=== PATIENT | male | born 1945 | race Caucasian/White ===

== ENCOUNTER 2016-05-14 07:17 | Outpatient (CLI) | payer MEDICARE, BC ==
[~2016-05-14] VITALS: Ht 180.3 cm; Wt 82.3 kg
--- NOTE | ~2016-05-14 | HEMODYNAMI ---
PATIENT:JACQUELINE STEELE MEDICAL RECORD: [id number] : 47 LOCATION:DODALYS ADMISSION DATE: 05/14/16 Generatedon:05/14/201610:51 Patient name: JACQUELINE STEELE Patient #: [id number] SSN: [id number] : 1945 Date of study: 05/14/2016 Page: Of Hemodynamic Procedure Report Patient Data Patient Demographics Procedure consent was obtained First Name: JACQUELINE Gender: Male Last Name: IVETTE : 1945 Middle Initial: DEBORA Age: 70 year(s) Patient #: [id number] Race: Unknown SSN: [id number] Additional ID: [id number] Contact details Address: [address] [place] [address] State: [place] City: [place] Zip code: [address] Past Medical History Allergies: No known allergies Admission Admission Data Admission Date: 05/14/2016 Admission Time: 7:17 Insurance Payor: Private health insurance, Medicare Height (in.): 71 BSA: 2.03 (m2) Height (cm.): 180.34 BMI: 25.52 (kg/m2) Weight (lbs.): 183 Weight (kg.): 83.01 Lab Results Lab Result Date: 05/14/2016 Lab Result Time: 0:00 Biochemistry Name Units Result Min Max BUN mg/dl 13 --(--*-)-- 7 18 Creatinine mg/dl 0.9 --(-*--)-- 0.6 1.3 CBC Name Units Result Min Max Hemoglobin g/dl 14.2 --(*---)-- 13.5 17.5 Procedure Procedure Types Cath Procedure Diagnostic Procedure [facility] w/Coronaries Procedure Description Procedure Date Procedure Date: 05/14/2016 Procedure Start Time: 10:28 Procedure End Time: 10:50 Procedure Staff Name Function Isma Pryor MD Performing Physician Annabella Lunsford RT Scrub Gladys Estrada RN Nurse Dallin Morales RN Supervisor Forming And Tempering Chani Israel RT Monitor Procedure Data Cath Procedure Fluoroscopy Diagnostic fluoroscopy Total fluoroscopy Time: 4.5 time: 4.5 min min Diagnostic fluoroscopy Total fluoroscopy dose: 721 dose: 721 mGy mGy Contrast Material Contrast Material Type Amount (ml) Isovue 300 86 Entry Location Entry Primary Successful Side Size Upsize Upsize Entry Closure Del Real ccessful Closure Location (Fr) 1 (Fr) 2 (Fr) Remarks Device Remarks Radial Right 6 Fr Mechanical tr b artery Short Compression Femoral Right 5 Fr Exoseal artery Estimated blood loss: 10 ml Diagnostic catheters Device Type Used For End Catheter Placement Terumo 5Fr Nicholas 110cm Procedure catheter Terumo 5Fr [place] 110cm Procedure catheter Cordis 5Fr JL 4.0 Procedure Catheter (MP) Cordis 5Fr 3DRC Catheter Procedure (MP) Cordis 5Fr Pigtail Catheter (MP) Procedure Complications No complications Procedure Medications Medication Administration Route Dosage Oxygen NC 2 l/min Heparin Flush Bag added to field 2 bags (1000units/500ml NS) Lidocaine 2% added to field 20 Radial Cocktail added to field 1 syringe (Verapomil 2mg/Nitro 400mcg/Heparin 1500units) Benadryl I.V. 50 mg Versed I.V. 1 mg Fentanyl I.V. 50 mcg Versed I.V. 1 mg Fentanyl I.V. 50 mcg Versed I.V. 1 mg Fentanyl I.V. 50 mcg Radial Cocktail I.A. 1 syringe (Verapomil 2mg/Nitro 400mcg/Heparin 1500units) Hemodynamics Rest BSA: 2.03 (m2) HGB: 14.2 (g/dl) O2 Consumption: Estimated: 237.38 (ml/min) O2 Co nsumption indexed: Estimated:116.94 (ml/min/m) Heart Rate: 73 (bpm) Pressure Samples Time Site Value (mmHg) Purpose Heart Use Rate(bpm) 10:42 LV 107/-14,9 Snapshot 71 Gradients Valve Time Site Site Mean SEP/DFP Peak To Heart Use 1 2 (mmHg) (sec/min) Peak Rate (mmHg) (bpm) Aortic 10:43 LV AO 73 Snapshots Pre Cath Intra NCS Post Cath Vital Signs Time Heart Resp SPO2 NIBP (mmHg) Rhythm Pain Sedation Rate (ipm) (%) Status Level (bpm) 9:46:21 66 15 98 141/77(117) NSR 0 (11) 10(A) , No pain 9:50:35 69 17 96 135/84(112) NSR 0 (11) 10(A) , No pain 9:54:47 66 18 96 141/80(124) NSR 0 (11) 10(A) , No pain 9:58:59 67 18 98 135/83(109) NSR 0 (11) 10(A) , No pain 10:03:09 66 16 95 125/83(102) NSR 0 (11) 10(A) , No pain 10:07:17 68 11 94 127/78(107) NSR 0 (11) 10(A) , No pain 10:11:27 67 11 96 133/79(112) NSR 0 (11) 10(A) , No pain 10:15:41 66 15 97 137/74(111) NSR 0 (11) 10(A) , No pain 10:19:54 76 13 96 125/84(103) NSR 0 (11) 10(A) , No pain 10:24:06 71 14 94 135/70(105) NSR 0 (11) 10(A) , No pain 10:28:20 80 16 95 138/74(106) NSR 0 (11) 10(A) , No pain 10:32:36 76 15 95 112/69(91) NSR 0 (11) 9(A) , No pain 10:36:44 69 17 95 116/67(88) NSR 0 (11) 9(A) , No pain 10:40:52 79 15 95 121/73(96) NSR 0 (11) 9(A) , No pain 10:45:02 83 15 95 119/68(99) NSR 0 (11) 9(A) , No pain 10:49:06 69 19 95 125/64(98) NSR 0 (11) 10(A) , No pain Medications Time Medication Route Dose Verified Delivered Reason Notes Effectiveness by by 9:49:22 Oxygen NC 2 l/min Isma Gladys Per Konstantin Estrada RN physician 9:49:30 Heparin Flush added 2 bags Isma Isma used for Bag to Konstantin Pryor MD procedure (1000units/500ml field NS) 9:49:37 Lidocaine 2% added 20ml Isma Isma used for to vial Konstantin Pryor MD procedure field 9:49:46 Radial Cocktail added 1 Isma Isma used for (Verapomil to syringe Konstantin Pryor MD procedure 2mg/Nitro field 400mcg/Heparin 1500units) 9:49:53 Benadryl I.V. 50 mg Isma Gladys Per Konstantin Estrada RN physician 10:21:50 Versed I.V. 1 mg Isma Gladys for sedation Konstantin Estrada RN 10:21:56 Fentanyl I.V. 50 mcg Isma Gladys for sedation Konstantin Estrada RN 10:25:04 Versed I.V. 1 mg Isma Gladys for sedation Konstantin Estrada RN 10:25:06 Fentanyl I.V. 50 mcg Isma Gladys for sedation Konstantin Estrada RN 10:28:34 Radial Cocktail I.A. 1 Isma Isma for (Verapomil syringe Konstantin Pryor MD vasodilation 2mg/Nitro 400mcg/Heparin 1500units) 10:29:18 Versed I.V. 1 mg Isma Gladys for sedation Konstantin Estrada RN 10:29:20 Fentanyl I.V. 50 mcg Isma Gladys for sedation Konsatntin Estrada RN Procedure Log Time Note 9:30:25 Dallin Morales RN sent for patient. Start room use. 9:35:13 Patient Height : 180.34 inches 9:35:24 Patient Weight : 83.01 lbs 9:35:31 Insurance Payor : Private health insurance, Medicare 9:36:37 Lab Result : BUN 13 mg/dl 9:36:37 Lab Result : Creatinine 0.9 mg/dl 9:36:37 Lab Result : Hemoglobin 14.2 g/dl 9:36:46 Diagnostic Cath Status : Elective 9:37:54 Time tracking: Regular hours 9:38:00 Plan of Care:Hemodynamics will remain stable., Cardiac rhythm will remain stable., Comfort level will be maintained., Respiratory function will remain adequate., Patient/ family verbilizes understanding of procedure., Procedure tolerated without complication., Recovers from procedure without complications.. 9:38:07 Patient received from Outpatients to [facility] 1 Alert and oriented. Tansferred to table in Supine position. 9:38:08 Warm blankets applied, and yanira hugger turned on for patient comfort. 9:38:11 Correct patient and procedure confirmed by team. 9:38:13 Signed procedure consent form obtained from patient. 9:45:17 Vital chart was started 9:49:22 Oxygen 2 l/min NC was given by Gladys Estrada RN; Per physician; 9:49:30 Heparin Flush Bag (1000units/500ml NS) 2 bags added to field was given by Isma Pryor MD; used for procedure; 9:49:37 Lidocaine 2% 20ml vial added to field was given by Isma Pryor MD; used for procedure; 9:49:46 Radial Cocktail (Verapomil 2mg/Nitro 400mcg/Heparin 1500units) 1 syringe added to field was given by Isma Pryor MD; used for procedure; 9:49:53 Benadryl 50 mg I.V. was given by Gladys Estrada RN; Per physician; 9:51:41 H&P Date Dictated: 05/09/2016 Within 30 days and on chart., H&P Addendum completed by physician on day of procedure. (MUST COMPLETE FOR ALL OUTPATIENTS). 9:51:43 Pre-procedure instructions explained to patient. 9:52:03 Family in waiting room. 9:52:06 Patient NPO since Midnight. 9:52:40 Patient allergic to No known allergies 9:52:52 Was the patient premedicated? No 9:52:54 Is patient on blood thinner?No 9:52:58 Patient diabetic? Yes. 9:53:00 If diabetic: On Metformin? Yes 9:53:07 If on Metformin: Last Dose? 05/12/2016 9:53:14 Snore? Yes 9:53:18 Sleep apnea? No 9:53:28 Dentures? Yes in tight 9:54:16 IV patent on arrival in left forearm with 0.9% NaCl at KVO. 9:54:23 Lab results completed and on chart. 9:54:27 Right Radial & Right Groin area was prepped with chlora-prep and draped in sterile fashion 9:54:28 Sharps counted by scrub and verified by R.N. 9:54:30 Physician paged 9:57:48 Use device set Radial Dx 9:57:50 Cardinal Cath Pack opened to sterile field. 9:57:51 Acist Syringe opened to sterile field. 9:57:51 Bag Decanter opened to sterile field. 9:57:52 Terumo 6Fr Slender Glidesheath opened to sterile field. 9:57:53 St Ceasar 260cm J .035 wire opened to sterile field. 9:57:53 Acist Hand Control opened to sterile field. 9:57:54 Acist Manifold opened to sterile field. 9:58:20 Cook 21G 4cm Radial Needle opened to sterile field. 10:21:11 Physician arrived 10::14 --------ALL STOP TIME OUT------ 10::15 Final Timeout: patient, procedure, and site verified with staff and physician. All members of the team are in agreement. 10:21:17 Right Radial & Right Groin site verified by team. 10:21:21 Physical assessment completed. ASA score P 2 - A patient with mild systemic disease as per Isma Pryor MD. 10::28 Sedation plan: IV Moderate Sedation Versed, Fentanyl 10::50 Versed 1 mg I.V. was given by Gladys Estrada RN; for sedation; 10::56 Fentanyl 50 mcg I.V. was given by Gladys Estrada RN; for sedation; 10::54 Baseline sample Acquired. 10::57 Rhythm: sinus rhythm 10::58 Full Disclosure recording started 10:25:04 Versed 1 mg I.V. was given by Gladys Estrada RN; for sedation; 10:25:06 Fentanyl 50 mcg I.V. was given by Gladys Estrada RN; for sedation; 10::57 Zero performed for pressure channel P1 10:28:09 Procedure started. 10:28:16 Local anesthetic to right radial artery with Lidocaine 2% by Isma Pryor MD.INITIAL ACCESS ONLY 10::25 A 6 Fr Short sheath was inserted into the Right Radial artery 10:28:34 Radial Cocktail (Verapomil 2mg/Nitro 400mcg/Heparin 1500units) 1 syringe I.A. was given by Isma Pryor MD; for vasodilation; 10:29:18 Versed 1 mg I.V. was given by Gladys Reading RN; for sedation; 10:29:20 Fentanyl 50 mcg I.V. was given by Gladys Estrada RN; for sedation; 10:31:36 A Terumo 5Fr Nicholas 110cm catheter was advanced over the wire and used for Procedure. 10:32:41 Catheter removed. 10:34:29 A Terumo 5Fr [place] 110cm catheter was advanced over the wire and used for Procedure. 10:34:42 unable to cannulate 10:35:35 Terumo 5Fr Rinard Sheath opened to sterile field. 10:35:45 Local anesthetic to right femoral artery with Lidocaine 2% by Isma Pryor MD.ADDITIONAL ACCESS 10:35:55 A 5 Fr sheath was inserted into the Right Femoral artery 10:36:15 Use device set Multipack Set 10:36:19 Cordis Infinity 5Fr Multipack catheter opened to sterile field. 10:37:47 A Cordis 5Fr JL 4.0 Catheter (MP) was advanced over the wire and used for Procedure. 10:37:56 LCA angiography performed. 10:38:39 Catheter removed. 10:38:48 A Cordis 5Fr 3DRC Catheter (MP) was advanced over the wire and used for Procedure. 10:38:53 RCA angiography performed. 10:42:07 Catheter removed. 10:42:53 A Cordis 5Fr Pigtail Catheter (MP) was advanced over the wire and used for . 10:43:14 LV gram done using MARKS 10:43:18 Catheter removed. 10:43:24 EF : 25 % 10:45:27 Cordis 5Fr Exoseal opened to sterile field. 10:46:03 Terumo TR Band Standard opened to sterile field. 10:46:06 Tegaderm 4 x 4 opened to sterile field. 10:47:01 Sheath removed intact; hemostasis achieved with Mechanical Compression to the Right Radial artery. 10:47:51 Sheath removed intact; hemostasis achieved with Exoseal to the Right Femoral artery. 10:47:57 Procedure ended.(Physican Out) 10:48:30 Fluoroscopy time 04.50 minutes. 10:48:44 Flurop Dose total: 721 10:48:44 Fluoroscopy dose: 721 mGy 10:48:51 Contrast amount:Isovue 300 86ml. 10:48:53 Sharps counted by scrub and verified by R.N. 10:49:01 TR band inflated with 10cc of air. 10:49:04 Insertion/operative site no bleeding no hematoma. 10:49:08 Post-op/insertion site Right Femoral artery dressed using a 4 x 4 and Tegaderm. 10:49:13 Post Procedure Pulses reassessed and unchanged 10:49:18 Post-procedure physical assessment completed. ASA score P 2 - A patient with mild systemic disease as per Isma Pryor MD. 10:49:23 Post procedure rhythm: sinus rhythm 10:49:27 Estimated blood loss: 10 ml 10:49:29 Post procedure instruction explained to patient.Patient verbalizes understanding. 10:49:31 Patient needs reinforcement of post procedure teaching. 10:49:39 Procedure and supply charges have been captured, reviewed, submitted and are correct. 10:50:11 Procedure Complication : No complications 10:50:14 Vital chart was stopped 10:50:14 See physician's report for complete and final results. 10:50:21 Report given to Outpatients. 10:50:25 Patient transfered to Outpatients with Stretcher. 10:50:28 Procedure ended. 10:50:28 Full Disclosure recording stopped 10:50:42 End room use (Document Last) Device Usage Item Name Manufacture Quantity Catalog Hospital Part Current Minimal Lot# / Number Charge Number Stock Stock Serial# Code Cardinal Cardinal 1 [id number] 09829 465800 5 Cath CertusNet Acist Acist 1 64268 520646 787778 713380 20 Syringe [employer] Inc Bag Microtek 1 2002S 434414 63929 046541 5 Decanter [employer]. Terumo 6Fr Terumo 1 [id number] 620949 763228 639690 [address] Ce[address] St Ceasar 1 382126 599614 483961 310755 30 260cm J .035 wire Acist Hand Acist 1 74661 708445 683657 163292 5 Control Medical [employer] Inc Acist Acist 1 10670 360206 038207 136504 5 Manifold [employer] Inc Cook 21G Cook Medical 1 Q38008 909696 226619 5 4cm Radial Needle Terumo 5Fr Terumo 1 40-9198 831925 907664 510077 5 Nicholas 110cm catheter Terumo 5Fr Terumo 1 40-8513 549711 685012 432200 5 [place] 110cm catheter Terumo 5Fr Terumo 1 [id number] 379787 726347 440201 40 Rinard Sheath Cordis Cardinal 1 [id number] 907306 97889 275328 30 Infinity Health 5Fr Multipack catheter Cordis 5Fr Cardinal 1 998774 5 JL 4.0 Health Catheter (MP) Cordis 5Fr Cardinal 1 906605 5 3DRC Health Catheter (MP) Cordis 5Fr Cardinal 1 935150 5 Pigtail Health Catheter (MP) Cordis 5Fr Cardinal 1 EX500 920891 113352 759832 10 Exoseal Health Terumo TR Terumo 1 [id number] 491943 919691 881570 40 Band Standard Tegaderm 4 3M 1 1626W 197550 810479 482320 5 x 4 Signature Audit [place] Stage Time Signature Unsigned Intra-Procedure 05/14/2016 Chani Israel 10:51:16 AM RT(R) Signatures Monitor : Chani Israel Signature : RT Date : Time : [place] [id number] [place] [id number]
[2016-05-14] MEDS ORDERED: GLIPIZIDE10 MG PO (07:59)
[2016-05-14] MEDS ORDERED: BAYER CHEWABLE81 MG PO (07:59)
[2016-05-14] MEDS ORDERED: ZESTRIL10 MG PO (08:00)
[2016-05-14] MEDS ORDERED: LANTUS INSULIN10 ML SC (08:00)
[2016-05-14] MEDS ORDERED: GLUCOPHAGE1000 MG PO (08:01)
[2016-05-14] MEDS ORDERED: ZOCOR20 MG PO (08:05)
[2016-05-14 08:16] VITALS: BP 132/70; Ht 180.3 cm; Wt 82.3 kg
[2016-05-14 09:00] LABS: HEMATOCRIT 43.8 % (42.0-54.0); HEMOGLOBIN 14.2 g/dL (13.5-17.5); IMMATURE GRANULOCYTES 0.4 % (0-5); LYMPHOCYTES 20.8 % (15-50); MCH 25.7 pg (26.0-34.0); MCHC 32.4 g/dL (31.0-37.0); MCV 79.2 fL (80.0-100.0); MEAN PLATELET VOLUME 10.1 fL (7.4-10.4); MONOCYTES 11.8 % (2-11); PLATELET COUNT 385 10x3/uL (130-400); RBC 5.53 10x6/uL (4.20-6.10); RDW 14.6 % (11.5-14.5); WBC 8.9 10x3/uL (4.8-10.8)
[2016-05-14 09:09] LABS: CALC OSMOLALITY 285 mosm/kg (275-300); CARBON DIOXIDE 30.4 mmol/L (21.0-32.0); CHLORIDE - SERUM 104 mmol/L (98-107); CREATININE - SERUM 0.9 mg/dL (0.6-1.3); GLUCOSE 118 mg/dL (74-106); POTASSIUM - SERUM 4.9 mmol/L (3.5-5.1); SODIUM 143 mmol/L (136-145); UREA NITROGEN 13 mg/dL (7-18); eGFR NON AFRICAN AMERICAN 89 mL/min (90-120)
--- NOTE | 2016-05-14 11:20 | NUR ---
CHEST PAIN DENIED WITH HR NSR 60 BP 102/57 TR BAND TO R/WRIST CDI NO BLEEDING NO HEMATOMA NOTED. 5 FR VASCADE R/GROIN CDI NO BLEEDING NO HEMATOMA NOTED INSTRUCTED PATIENT TO KEEP RLE STRAIGHT WITH HEAD FLAT ON PILLOW
--- NOTE | 2016-05-14 13:02 | NUR ---
1150 SLEEPING, LYING FLAT. NSR R ATE 65 W NO C/O PAIN. PULSES PALP X4. R WRIST AND R GROIN REMAIN C/D/I WITH NO HEMATOMA OR BLEEDING. 1230 R WRIST/R GROIN REMAIN C/D/I WITH NO HEMATOMA OR BLEEDING. VITALS ALL WNL. FAMILY AT BEDSIDE.
--- NOTE | 2016-05-14 13:19 | NUR ---
4CC AIR REMOVED FROM R WRIST TR BAND, IMMEDIATELY STARTED TO BLEED. AIR REPLACED WILL MONITOR CLOSELY.
--- NOTE | 2016-05-14 14:00 | NUR ---
TR BAND REMOVED WITH NO BLEEDING AT SITE NO HEMATOMA NOTED. DRESSING APPLIED. CHEST PAIN IS DENIED. VERBAL AND WRITTEN DISCHARGE GIVEN TO PATIENT AND . LEFT VIA WC TO [facility] FOR TRANSPORT HOME
--- NOTE | 2016-05-27 13:15 | OP ---
PATIENT NAME: JACQUELINE STEELE MEDICAL RECORD: [id number] :47 LOCATION:D.CAT ADMISSION DATE: SURGEON: IVAN WARNER M.D. DATE OF OPERATION: 05/14/2016 REFERRING PHYSICIAN: Joyce Burris MD PROCEDURES PERFORMED: 1. Selective coronary angiography. 2. Left heart catheterization with ventriculogram. INDICATION: A 70-year-old gentleman presents with worsening dyspnea. Recent stress test revealed inferior wall defect. EQUIPMENT USED: A 5-Kinyarwanda JL4, Dereck right, pigtail catheter. TECHNIQUE: A 5-Kinyarwanda sheath was placed in retrograde fashion in the right common femoral artery. Next, selective coronary angiography was performed in standard fashion 5-Kinyarwanda JL4 and Dereck right. Left heart catheterization was performed using pigtail catheter. CORONARY ANATOMY: 1. Left main: Left main trunk is moderate in caliber. It gives rise to the LAD and circumflex. There is no obstruction. 2. LAD: This vessel is heavily calcified in the proximal segment, but only has mild irregularities and nothing worse than 20% to 30%. Mid distal vessel is small in caliber. It is diffusely diseased. There is moderate disease seen in these areas around 40% to 50%. 3. Circumflex: This vessel is moderate in caliber. The first lateral branch has a smooth 50% stenosis in the mid distal segment. 4. Right coronary artery: This vessel is moderate in caliber and dominant. The proximal vessel has mild irregularities, but nothing worse than 30%. 5. Left ventricle: Left ventricle is dilated. The apex is severely hypokinetic. There is global hypokinesis involving the other segments. Estimated ejection fraction of 25%. IMPRESSION: 1. Moderate coronary artery disease. 2. Severe left ventricular dysfunction with ejection fraction of 25%. RECOMMENDATIONS: I suspect his symptoms are mainly from his reduced ejection fraction. We will continue with the medical management at this point. We may consider an ICD versus biventricular pacemaker because of his reduce ejection fraction. TRANSINT:[id number] Voice Confirmation ID: [id number] DOCUMENT ID: [id number] OPERATIVE REPORT [id number] JACQUELINE STEELE IVAN WARNER M.D. at 1315 CC: [id number] DICTATION DATE: 05/14/16 1052 SR. PAYROLL PROCESSOR: 05/14/16 1208 DEP CLI 05/14/16 [place] [id number] [place] [address]
== END 2016-05-14 14:03 | disposition home or self-care (01) ==
LOC: D.CATH 07:17
PROVIDERS: Internal Medicine Cardiovascular Disease
DX: I25.10 Atherosclerotic heart disease of native coronary artery without angina pectoris (principal); I51.9 Heart disease, unspecified

== ENCOUNTER 2018-04-05 08:15 | Day surgery (SDC) | payer MEDICARE, BC ==
[2018-04-04 15:17] LABS: HEMATOCRIT 37.1 % (42.0-54.0); MCH 24.9 pg (26.0-34.0); MCHC 32.3 g/dL (31.0-37.0); MCV 77.1 fL (80.0-100.0); MEAN PLATELET VOLUME 9.3 fL (7.4-10.4); RBC 4.81 10x6/uL (4.20-6.10); RDW 15.1 % (11.5-14.5); WBC 9.1 10x3/uL (4.8-10.8)
[2018-04-04 15:23] LABS: CALC OSMOLALITY 281 mosm/kg (275-300); CALCIUM 9.3 mg/dL (8.5-10.1); CARBON DIOXIDE 26.7 mmol/L (21.0-32.0); CHLORIDE - SERUM 102 mmol/L (98-107); CREATININE - SERUM 0.9 mg/dL (0.6-1.3); POTASSIUM - SERUM 4.2 mmol/L (3.5-5.1); SODIUM 138 mmol/L (136-145); UREA NITROGEN 17 mg/dL (7-18); eGFR NON AFRICAN AMERICAN 88 mL/min (90-120)
[2018-04-04 15:28] LABS: GLUCOSE 172 mg/dL (74-106)
[~2018-04-05] VITALS: Ht 181.6 cm; Wt 78.9 kg
--- NOTE | ~2018-04-05 | OP ---
PATIENT NAME: JACQUELINE STEELE MEDICAL RECORD: [id number] :47 LOCATION:D.OPS ADMISSION DATE: SURGEON: SAAD HENRY MD DATE OF OPERATION: 04/05/2018 SURGEON: Sada Henry MD ANESTHESIA: TIVA by Laquita Marrero CRNA. DIAGNOSIS: Obstructive benign prostatic hypertrophy. PROCEDURES: Cystoscopy and UroLift implant times 4, FINDINGS: Bilateral lateral lobe hyperplasia. Single ureteral orifices with no bladder tumors. A 40 gram prostate on JEB. IPSS is 15 and quality of life score is 3. BLOOD LOSS: Minimal. CLINICAL HISTORY: This is a 72-year-old male, who has significant voiding symptoms in spite of being on BPH medications. He wishes to be placed on the UroLift procedure. He was given Ancef contracts manager to the OR. DESCRIPTION OF PROCEDURE: The patient was given IV sedation. He was placed in dorsal lithotomy position. The scope was introduced and the obstructive lateral lobes were seen. Four devices were placed. Two were near the bladder neck and two were at the level of the verumontanum. There was one device on each side at each location. For the bladder neck devices, we landmarked about 2 cm distal to the bladder neck and then placed the device in the anterior lateral lobe. For the verumontanum devices, we landmarked the verumontanum and went up to the anterior lateral lobe and placed the devices. At the end of the procedure, there was a nice wide open channel. The bladder was emptied through the scope and the scope was removed. I will see him in followup in 1 months' time. TRANSINT:[id number] Voice Confirmation ID: [id number] DOCUMENT ID: [id number] SAAD HENRY MD at 1152 CC: [id number] DICTATION DATE: 04/05/18 1024 ELECTRIC TRAIN DRIVER: 04/05/18 1145 [address] [place] [id number] [place] [address]
[~2018-04-05 08:15] MED LIST: BAYER CHEWABLE81 MG PO; CELEXA20 MG PO; COREG12.5 MG PO; GLIPIZIDE10 MG PO; GLUCOPHAGE1000 MG PO; LANTUS INJ; LANTUS INSULIN10 ML SC; ZESTRIL10 MG PO; ZOCOR20 MG PO
[2018-04-05] MEDS ORDERED: CARBIDOPA-LEVO1 EAC2 PO (08:41)
[2018-04-05 08:49] VITALS: BP 135/75; Ht 181.6 cm; Wt 78.9 kg
== END 2018-04-05 15:30 | disposition home or self-care (01) ==
LOC: D.OPS 08:15 → D.PAN 11:30 → D.OPS 14:10 → D.PAN 14:10 → D.OPS 15:15 → D.PAN 15:15 → D.OPS 15:30
PROVIDERS: Anesthesiology
DX: N40.1 Benign prostatic hyperplasia with lower urinary tract symptoms (principal); N13.8 Other obstructive and reflux uropathy; Z01.812 Encounter for preprocedural laboratory examination

== ENCOUNTER → 2018-06-03 12:44 | Outpatient (CLI) | payer MEDICARE, BC ==
[2018-04-05 08:49] VITALS: BMI 23.9
[~2018-06-03 12:44] MED LIST changes: +CARBIDOPA-LEVO1 EAC2 PO
== END | disposition home or self-care (01) ==
LOC: D.RT 12:44
DX: R06.09 Other forms of dyspnea (principal)

== ENCOUNTER → 2018-11-17 10:35 | Outpatient (CLI) | payer MEDICARE, BC ==
[2018-04-05 08:49] VITALS: BMI 23.9
[~2018-11-17 10:35] MED LIST changes: +LOPRESSOR25 MG PO; +OMEPRAZOLE40 MG PO; +PLAVIX75 MG PO; +XANAX0.25 MG PO
== END | disposition home or self-care (01) ==
LOC: D.HCCARDIO 10:35
PROVIDERS: ATTEND Internal Medicine Cardiovascular Disease
DX: I25.10 Atherosclerotic heart disease of native coronary artery without angina pectoris (principal)

== ENCOUNTER 2018-11-24 06:28 | Outpatient (CLI) | payer MEDICARE, BC ==
[~2018-11-24] VITALS: Ht 182.9 cm; Wt 77.3 kg
--- NOTE | ~2018-11-24 | HEMODYNAMI ---
PATIENT:JACQUELINE STEELE MEDICAL RECORD: [id number] : 47 LOCATION:[facility] ADMISSION DATE: 11/24/18 Generatedon:11/24/20189:54 Patient name: JACQUELINE STEELE Patient #: [id number] SSN: [id number] : 1945 Date of study: 11/24/2018 Page: Of Hemodynamic Procedure Report Patient Data Patient Demographics Procedure consent was obtained First Name: JACQUELINE Gender: Male Last Name: IVETTE : 1945 Middle Initial: DEBORA Age: 73 year(s) Patient #: [id number] Race: SSN: [id number] Additional ID: [id number] Contact details Address: [address] [place] [address] State: [place] City: [place] Zip code: [address] Past Medical History Performed procedures and imaging results Date Procedure Procedure Results Comments 11/17/2018 Stress testing with Positive->High SPECT MPI risk Allergies: No known allergies Admission Admission Data Admission Date: 11/24/2018 Admission Time: 6:28 Arrival Date: 11/24/2018 Arrival Time: 0:00 Admit Source: Other [facility] #: [id number] Lab Results Lab Result Date: 11/24/2018 Lab Result Time: 7:45 Biochemistry Name Units Result Min Max BUN mg/dl 15 --(--*-)-- 7 18 Creatinine mg/dl 1 --(--*-)-- 0.6 1.3 CBC Name Units Result Min Max Hematocrit % 33.3 *-(----)-- 42 54 Hemoglobin g/dl 10.3 *-(----)-- 13.5 17.5 Procedure Procedure Types Cath Procedure Diagnostic Procedure [facility] w/Coronaries Sedation Charges Moderate Sedation up to 30 minutes PCI Procedure Coronary Stent Coronary Stent Initial Procedure Description Procedure Date Procedure Date: 11/24/2018 Procedure Start Time: 9:22 Procedure End Time: 9:53 Procedure Staff Name Function Isma Pryor MD Performing Physician Yasir Silver RT Monitor Angel Tran RT Scrub Tatianna Harvey RT Scrub Marquis Calhoun RN Nurse Procedure Data Cath Procedure Fluoroscopy Diagnostic fluoroscopy Total fluoroscopy Time: 4.6 time: 4.6 min min Diagnostic fluoroscopy Total fluoroscopy dose: 891 dose: 891 mGy mGy Contrast Material Contrast Material Type Amount (ml) Isovue 300 140 Entry Location Entry Primary Successful Side Size Upsize Upsize Entry Closure Succes sful Closure Location (Fr) 1 (Fr) 2 (Fr) Remarks Device Remarks Femoral Right 5 Fr 7 Fr Exoseal artery Short Estimated blood loss: 10 ml Diagnostic catheters Device Type Used For End Catheter Placement MULTIPACK JL 4.0 5Fr Procedure catheter MULTIPACK 3DRC 5Fr Procedure catheter MULTIPACK Pigtail 5 Fr Procedure catheter Procedure Complications No complications Procedure Medications Medication Administration Route Dosage Oxygen etCO2 Nasal cannula 2 l/min Lidocaine 2% added to field 20 Heparin Flush Bag added to field 2 bags (1000units/500ml NS) 0.9% NaCl I.V. 100 ml/hr Versed I.V. 1 mg Fentanyl I.V. 50 mcg Versed I.V. 1 mg Fentanyl I.V. 50 mcg Heparin Bolus I.V. 8000 units Nitroglycerin IC/IA I.C. 100 mcg Plavix P.O. 600 mg Hemodynamics Rest HGB: 10.3 (g/dl) Heart Rate: 70 (bpm) Pressure Samples Time Site Value (mmHg) Purpose Heart Use Rate(bpm) 9:30 LV 142/14,24 Snapshot 66 9:31 AO 141/70(99) Pullback 65 9:31 LV 145/12,35 Pullback 65 Gradients Valve Time Site 1 Site 2 Mean SEP/DFP Peak To Heart Use (mmHg) (sec/min) Peak Rate (mmHg) (bpm) Aortic 9:31 LV AO 10 15 4 65 145/12,35 141/70(99) Calculations Valve P-P Mean Valve Index Valve Source Name Gradient Area Flow (cm2) Aortic 4 10 4 10 Snapshots Pre Cath Intra NCS Post Cath Vital Signs Time Heart Resp SPO2 etCO2 NIBP (mmHg) Rhythm Pain Sedation Rate (ipm) (%) (mmHg) Status Level (bpm) 9:10:16 68 18 98 28.4 153/92(131) NSR 0 (11) 10(A) , No pain 9:14:37 60 17 99 21.6 154/74(133) NSR 0 (11) 10(A) , No pain 9:18:57 56 16 99 28.4 140/77(112) NSR 0 (11) 9(A) , No pain 9:24:04 55 15 98 14.2 133/75(111) NSR 0 (11) 9(A) , No pain 9:28:14 64 13 96 35.9 145/80(117) NSR 0 (11) 9(A) , No pain 9:32:28 66 14 97 21.6 135/86(102) NSR 0 (11) 9(A) , No pain 9:36:38 65 13 99 35.9 126/83(103) NSR 0 (11) 9(A) , No pain 9:40:45 64 11 98 35.9 133/78(99) NSR 0 (11) 9(A) , No pain 9:44:57 64 13 98 35.1 138/72(103) NSR 0 (11) 9(A) , No pain 9:49:09 64 12 98 35.9 132/83(101) NSR 0 (11) 9(A) , No pain 9:53:19 62 12 98 30.6 139/81(109) NSR 0 (11) 10(A) , No pain Medications Time Medication Route Dose Verified Delivered Reason Notes Effectiveness by by 9:07:59 Oxygen etCO2 2 Isma Buffie used for Nasal l/min Konstantin Calhoun RN procedure cannula 9:08:07 Lidocaine 2% added 20ml Isma Isma for local to vial Konstantin Pryor MD anesthetic field 9:08:13 Heparin Flush added 2 Isma Isma used for Bag to bags Konstantin Pryor MD procedure (1000units/500ml field NS) 9:08:21 0.9% NaCl I.V. 100 Isma Buffie Per physician ml/hr Konstantin Calhoun RN 9:14:57 Versed I.V. 1 mg Isma Buffie for sedation Konstantin Calhoun RN 9:15:02 Fentanyl I.V. 50 Isma Buffie for sedation mcg Konstantin Calhoun RN 9:21:26 Versed I.V. 1 mg Isma Buffie for sedation Konstantin Calhoun RN 9:21:30 Fentanyl I.V. 50 Isma Buffie for sedation mcg Konstantin Calhoun RN 9:35:25 Heparin Bolus I.V. 8000 Isma Buffie for verifi ed units Konstantin Calhoun RN anticoagulation with dr pryor 9:35:38 Nitroglycerin I.C. 100 Isma Isma for IC/IA mcg Konstantin Pryor MD vasodilation 9:53:41 Plavix P.O. 600 Isma Buffie for mg Konstantin Calhoun RN antiplatelet therapy Procedure Log Time Note 8:44:42 Informed consent obtained and on chart 8:47:21 Admit Source: Other 8:47:24 Arrival Date: 11/24/2018 12:00:00 AM 8:49:14 Lab Result : Hemoglobin 10.3 g/dl 8:49:14 Lab Result : Hematocrit 33.3 % 8:49:14 Lab Result : BUN 15 mg/dl 8:49:14 Lab Result : Creatinine 1 mg/dl 8:49:28 Diagnostic Cath Status : Elective 8:49:48 ACC Patient presents with Stable Angina CCS Anginal Class 1--Ordinary physical activity does not cause angina, angina occurs with strenuos, rapid, or prolonged activity.. 8:49:51 ACCPatient has been prescribed/administered the following anti-anginal medication within the last 2 weeks: Beta Farhan 8:49:54 Procedure Status Elective Heart Cath (OP). 8:49:57 Angel Tran RT(R) sent for patient. Start room use. 8:49:58 Time tracking: Regular hours (M-F 7:00 - 5:00) 8:50:01 Plan of Care:Hemodynamics will remain stable., Cardiac rhythm will remain stable., Comfort level will be maintained., Respiratory function will remain adequate., Patient/ family verbilizes understanding of procedure., Procedure tolerated without complication., Recovers from procedure without complications.. 8:50:08 H&P Date Dictated: 11/14/2018 Within 30 days and on chart., H&P Addendum completed by physician on day of procedure. (MUST COMPLETE FOR ALL OUTPATIENTS). 8:50:12 Lab results completed and on chart. 8:59:48 Patient allergic to No known allergies 9:01:44 Patient received from Pre/Post Procedure Room to CCL 1 Alert and oriented. Tansferred to table in Supine position. 9:01:47 Warm blankets applied, and yanira hugger turned on for patient comfort. 9:01:48 Correct patient and procedure confirmed by team. 9:01:48 ECG and BP/O2 sat monitors applied to patient. 9:03:10 If diabetic: On Metformin? Yes 9:03:16 If on Metformin: Last Dose? 11/22/2018 9:03:21 Pre-procedure instructions explained to patient. 9:03:22 Pre-op teaching completed and patient verbalized understanding. 9:03:23 Family in waiting room. 9:03:25 Patient NPO since Midnight. 9:03:26 Is the patient allergic to Iodine/contrast media? No. 9:03:27 Is patient on blood thinner?No 9:03:30 ACC The patient was administered the following blood thiners within the last 24 hours: None 9:03:34 Previous problem with sedation/anesthesia? No ? 9:03:36 Snore? No 9:03:37 Sleep apnea? No 9:03:37 Deviated septum? No 9:03:41 Opens mouth fully? Yes 9:03:48 Sticks out tongue? Yes 9:04:11 Airway obstruction? No ? 9:04:36 Dentures? Yes TOP IN TIGHT, BOTTOM OUT 9:04:46 Pre procedure: right dorsailis pedis pulse 2+ Normal; easily identifiable; not easily obliterated 9:04:52 Patient pain scale 4/10 LEFT ARM PAIN. 9:05:01 IV patent on arrival in left forearm with 0.9% NaCl at O. 9:05:07 Right groin area was prepped with chlora-prep and draped in sterile fashion 9:05:08 Alarms reviewed by R. N. 9:05:09 Sharps counted by scrub and verified by R.N. 9:05:11 Use device set Femoral Dx 9:05:12 ACIST Syringe (03897) opened to sterile field. 9:05:12 Bag Decanter (2002S) opened to sterile field. 9:05:12 Medline Cath Pack ([id number]) opened to sterile field. 9:05:13 ACIST Hand Control (83194) opened to sterile field. 9:05:14 ACIST Manifold (87424) opened to sterile field. 9:05:14 Tegaderm 4 x 4 (1626W) opened to sterile field. 9:05:15 EMERALD Guide Wire (685-041) opened to sterile field. 9:05:16 DIAGNOSTIC Multipack 5Fr catheter set (OB9767) opened to sterile field. 9:05:18 SHEATH 5FR Stonewall (BYV502) opened to sterile field. 9:07:59 Oxygen 2 l/min etCO2 Nasal cannula was administered by Marquis Calhoun RN; used for procedure; 9:08:07 Lidocaine 2% 20ml vial added to field was administered by Isma Pryor MD; for local anesthetic; 9:08:13 Heparin Flush Bag (1000units/500ml NS) 2 bags added to field was administered by Isma Pryor MD; used for procedure; 9:08:21 0.9% NaCl 100 ml/hr I.V. was administered by Marquis Calhoun RN; Per physician; 9::54 Baseline sample Acquired. 9:11:43 Baseline sample Acquired. 9:11:50 Rhythm: 1st degree heart block 9:11:52 Full Disclosure recording started 9:11:54 Physician arrived 9:11:55 --------ALL STOP TIME OUT------ 9:11:55 Final Timeout: patient, procedure, and site verified with staff and physician. All members of the team are in agreement. 9:11:58 Right groin site verified by team. 9:12:01 Fire Safety Assessment: A--An alcohol-based skin anteseptic being used preoperatively., C--Open oxygen or nitrous oxide is being used., D--An ESU, laser, or fiber-optic light is being used. 9:12:04 Physical assessment completed. ASA score P 2 - A patient with mild systemic disease as per Isma Pryor MD. 9:12:07 2) 60-89 Mildly reduced kidney function, and other findings (as for stage 1) point to kidney disease. 9:12:14 Maximum allowable contrast dose (3.7 X eGFR X 0.75)216 ml. 9:12:19 Sedation plan: IV Moderate Sedation Medication:Versed, Fentanyl 9:14:57 Versed 1 mg I.V. was administered by Marquis Calhoun RN; for sedation; 9:15:02 Fentanyl 50 mcg I.V. was administered by Marquis Calhoun RN; for sedation; 9:21:24 Zero performed for pressure channel P1 9:21:26 Versed 1 mg I.V. was administered by Marquis Calhoun RN; for sedation; 9:21:30 Fentanyl 50 mcg I.V. was administered by Marquis Calhoun RN; for sedation; 9:21:54 Procedure started. 9:22:00 Local anesthetic to right femoral artery with Lidocaine 2% by Isma Pryor MD.INITIAL ACCESS ONLY 9:22:08 A 5 Fr sheath was inserted into the Right Femoral artery 9:23:32 A MULTIPACK JL 4.0 5Fr catheter was advanced over the wire and used for Procedure. 9:27:21 LCA angiography performed. 9:27:25 Catheter exchanged over wire. 9:27:30 A MULTIPACK 3DRC 5Fr catheter was advanced over the wire and used for Procedure. 9:27:50 RCA angiography performed. 9:28:11 ACCDominant side:Co-Dominant 9:28:40 Catheter exchanged over wire. 9:28:45 A MULTIPACK Pigtail 5 Fr catheter was advanced over the wire and used for Procedure. 9:29:19 BMW 300cm [place] 2 J wire ([id number]) opened to sterile field. 9:29:20 INFLATOR Merit BasixCompak (YF7636) opened to sterile field. 9:29:30 SHEATH 7FR Stonewall (DAP621) opened to sterile field. 9:29:41 TUBING High Pressure Extension Tubing (Konstantin) ([id number]) opened to sterile field. 9:30:22 LV gram done using MARKS 9:30:24 Injector settings: Ml/sec: 10, Volume: 20, 9:30:34 LV hemodynamics recorded. 9:30:49 EF : 15 % 9:31:03 Catheter removed. 9:31:11 Sheath upsized to a 7 Fr Short. 9:32:27 GUIDE 6FR AR 1.0 catheter (BU4QK76) opened to sterile field. 9:32:36 6 Fr AR 1 guide catheter was inserted over the wire 9:32:40 ACC Pre-intervention EBER Flow is 3. 9:32:48 Pre PCI Site: NativeRCA has 90% stenosis. 9:35:25 Heparin Bolus 8000 units I.V. was administered by Marquis Calhoun RN; for anticoagulation; verified with dr pryor 9:35:38 Nitroglycerin IC/IA 100 mcg I.C. was administered by Isma Pryor MD; for vasodilation; 9:38:51 BMW wire advanced. 9:38:53 Wire advanced across lesion. 9:42:31 Place stent Inflation Number: 1 A COBRA RX 2.5 X 18 Stent was prepped and advanced across the Mid RCA -1. The stent was deployed at 12 OBI for 0:10 (min:sec) -1. 9:43:27 Stent catheter was removed intact over wire. 9:46:33 Place stent Inflation Number: 2 A COBRA RX 3.0 X 24 Stent was prepped and advanced across the Mid RCA . The stent was deployed at 12 OBI for 0:10 (min:sec) . 9:46:45 Stent catheter was removed intact over wire. 9:48:22 Wire removed. 9:48:22 Guide catheter removed. 9:48:43 ACT drawn and resulted at 265 seconds. (normal therapeutic range 180-240 seconds). 9:49:09 EXOSEAL 7Fr (EX700) opened to sterile field. 9:49:19 Sheath removed intact; hemostasis achieved with Exoseal to the Right Femoral artery. 9:49:21 Procedure ended.(Physican Out) 9:50:43 Fluoroscopy time 04.60 minutes. 9:51:22 Fluoroscopy dose: 891 mGy 9:51:22 Flurop Dose total: 891 9:51:43 Dose Area Product 64904.18175 mGy/cm. 9:51:47 Contrast amount:Isovue 300 140ml. 9:51:49 Maximum allowable dose exceeded? No. 9:51:50 Sharps counted by scrub and verified by R.N. 9:51:50 Insertion/operative site no bleeding no hematoma. 9:51:53 Post-op/insertion site Right Femoral artery dressed using a 4 x 4 and Tegaderm. 9:51:56 Post right femoral artery:stable, soft, clean and dry 9:51:58 Post Procedure Pulses reassessed and unchanged 9:52:00 Post-procedure physical assessment completed. ASA score P 2 - A patient with mild systemic disease as per Isma Pryor MD. 9:52:02 Post procedure rhythm: unchanged. 9:52:07 Estimated blood loss: 10 ml 9:52:08 Post procedure instruction explained to patient.Patient verbalizes understanding. 9:52:09 Patient needs reinforcement of post procedure teaching. 9:52:35 Procedure type changed to Cath procedure, Diagnostic procedure, LHC, LHC w/Coronaries, Sedation Charges, Moderate Sedation up to 30 minutes, PCI procedure, Coronary Stent, Coronary Stent Initial 9:52:59 Procedure and supply charges have been captured, reviewed, submitted and are correct. 9:53:01 Procedure Complication : No complications 9:53:03 Vital chart was stopped 9:53:03 See physician's report for complete and final results. 9:53:05 Report given to Pre/Post Procedure Room. 9:53:08 Patient transfered to Pre/Post Procedure Room with Stretcher. 9:53:09 Procedure ended. 9:53:09 Full Disclosure recording stopped 9:53:25 Post PCI Site: [place] RCA has 0% stenosis. 9:53:38 ACC Post-intervention EBER Flow is 3. 9:53:41 Plavix 600 mg P.O. was administered by Marquis Calhoun RN; for antiplatelet therapy; 9:53:57 ACC-PCI Only Patient was given prescriptions, or instructed by Isma Pryor MD to start/continue the following medications upon discharge: Aspirin, Plavix 9:53:59 End room use (Document Last) Intervention Summary Intervention Notes Time ActionType Lesion and Equipment Action# Pressure Duration Attributes Used 9:42:31 Place stent Mid RCA COBRA RX 1 12 00:10 2.5 X 18 Stent 9:46:33 Place stent Mid RCA COBRA RX 2 12 00:10 3.0 X 24 Stent Device Usage Item Name Manufacture Quantity Catalog Hospital Part Current Minimal Lot# / Number Charge Number Stock Stock Serial# Code ACIST Syringe Acist 1 18143 952020 086099 629899 20 (18737) Medical Systems Inc Bag Decanter Microtek 1 289860 45802 164706 5 () Medical Inc. Medline Cath Medline 1 [id number] 920674 59756 090882 5 Pack ([id number]) ACIST Hand Acist 1 20669 958155 368625 441047 5 Control Medical (52128) Systems Inc ACIST Manifold Acist 1 79265 799110 179969 900367 5 (05589) Medical Systems Inc Tegaderm 4 x 4 3M 1 1626W 594928 265942 036682 5 (1626W) EMERALD Guide Cardinal 1 502-455 448346 529949 555522 5 Wire (502-455) Health DIAGNOSTIC Cardinal 1 YP9044 801452 24620 041090 30 Multipack 5Fr Health catheter set (QE7663) SHEATH 5FR Terumo 1 BUQ446 210935 607585 463431 5 Stonewall (IOV363) MULTIPACK JL Cardinal 1 889490 5 4.0 5Fr Health catheter MULTIPACK 3DRC Cardinal 1 466490 5 5Fr catheter Health MULTIPACK Cardinal 1 153018 5 Pigtail 5 Fr Health catheter BMW 300cm Guerrero 1 [id number] 586362 760055 253579 5 [place] 2 J Vascular wire ([id number]) INFLATOR Merit Merit 1 KA4791 373613 492976 279718 15 BasixBloglovin Medical (JY8708) SHEATH 7FR Terumo 1 RVY101 524800 068664 167978 5 Stonewall (XBS065) TUBING High Merit 1 [id number] 310571 80420 621439 10 Pressure Medical Extension Tubing (Pryor) (AF4821O) GUIDE 6FR AR Medtronic 1 [id number] 330941 53521 620089 1 1.0 catheter (VV0PM08) COBRA RX 2.5 X Celonova 1 486-85-03907 913887 [id number] [id number] 1 [id number] 18 stent Biosciences (109-63-66029) COBRA RX 3.0 X Celonova 1 552-90-31772 584696 [id number] 008461 3 [id number] 24 stent Biosciences (182-53-19800) EXOSEAL 7Fr Cardinal 1 EX700 325275 635825 688952 5 (EX700) Health Signature Audit [place] Stage Time Signature Unsigned Intra-Procedure 11/24/2018 Yasir Silver 9:54:25 AM RT(R) Signatures Performing Physician : Signature : Isma Pryor MD Date : Time : Monitor : Yasir Silver RT Signature : Date : Time : Nurse : Buffie Calhoun RN Signature : Date : Time : [address] [place] [address]
[~2018-11-24 06:28] MED LIST changes: -LOPRESSOR25 MG PO; -OMEPRAZOLE40 MG PO; -PLAVIX75 MG PO; -XANAX0.25 MG PO
[2018-11-24] MEDS ORDERED: OMEPRAZOLE40 MG PO (07:31)
[2018-11-24] MEDS ORDERED: LOPRESSOR25 MG PO (07:31)
[2018-11-24] MEDS ORDERED: XANAX0.25 MG PO (07:32)
[2018-11-24 07:41] VITALS: BP 141/66; Ht 182.9 cm; Wt 77.3 kg
[2018-11-24 08:08] LABS: CALC OSMOLALITY 275 mosm/kg (275-300); CALCIUM 9.2 mg/dL (8.5-10.1); CARBON DIOXIDE 26.3 mmol/L (21.0-32.0); CHLORIDE - SERUM 101 mmol/L (98-107); POTASSIUM - SERUM 4.3 mmol/L (3.5-5.1); SODIUM 137 mmol/L (136-145); UREA NITROGEN 15 mg/dL (7-18); eGFR NON AFRICAN AMERICAN 78 mL/min (90-120)
[2018-11-24 08:09] LABS: GLUCOSE 118 mg/dL (74-106)
[2018-11-24 08:13] LABS: BASOPHILS 1.4 % (0-2); EOSINOPHILS 5.3 % (0-7); HEMATOCRIT 33.3 % (42.0-54.0); HEMOGLOBIN 10.3 g/dL (13.5-17.5); IMMATURE GRANULOCYTES 0.2 % (0-5); LYMPHOCYTES 10.4 % (15-50); MCHC 30.9 g/dL (31.0-37.0); MCV 64.5 fL (80.0-100.0); MEAN PLATELET VOLUME 9.6 fL (7.4-10.4); MONOCYTES 11.3 % (2-11); NEUTROPHILS 71.4 % (40-80); PLATELET COUNT 458 10x3/uL (130-400); RBC 5.16 10x6/uL (4.20-6.10); RDW 17.7 % (11.5-14.5); WBC 10.8 10x3/uL (4.8-10.8)
[2018-11-24 08:14] LABS: CHOL - HDL RATIO 3.1 ratio (2.3-4.9); LDL-HDL RATIO 1.7 ratio (1.5-3.5)
[2018-11-24] MEDS ORDERED: PLAVIX75 MG PO (10:10)
--- NOTE | 2018-11-24 10:11 | NUR ---
PT ARRIVED BY STRETCHER. PLACED ON MONITOR. ASSESSMENT COMPLETED. DR. WARNER ROUNDED AND SPOKE WITH PT'S AT BEDSIDE.
--- NOTE | 2018-11-24 10:25 | NUR ---
RIGHT GROIN DRESSING C/D/I. NO S/S OF HEMATOMA NOTED. CALL LIGHT WITHIN REACH. RIGHT PEDAL PULSE PALPABLE.
--- NOTE | 2018-11-24 10:55 | NUR ---
RIGHT GROIN DRESSING C/D/I. NO S/S OF HEMATOMA NOTED. VSS. RIGHT PEDAL PULSE PALPABLE. FAMILY AT BEDSIDE. CALL LIGHT WITHIN REACH. PT STILL IN SUPINE POSITION.
--- NOTE | 2018-11-24 11:23 | NUR ---
PT RESTING COMFORTABLY. RIGHT GROIN DRESSING C/D/I. NO S/S OF HEMATOMA NOTED. CALL LIGHT WITHIN REACH. RIGHT PEDAL PULSE PALPABLE
--- NOTE | 2018-11-24 12:00 | NUR ---
RIGHT GROIN DRESSING C/D/I. NO S/S OF HEMATOMA NOTED. VSS. FAMILY AT BEDSIDE. RIGHT PEDAL PULSE PALPABLE.
--- NOTE | 2018-11-24 12:30 | NUR ---
PT TOLERATING SIPS OF WATER. DENIES NAUSEA. RIGHT GROIN DRESSING C/D/I. NO S/S OF HEMATOMA NOTED. VSS.
--- NOTE | 2018-11-24 13:00 | NUR ---
HEAD OF BED INC TO 30 DEGREES. TOLERATED WELL. RIGHT GROIN DRESSING C/D/I. NO S/S OF HEMATOMA NOTED. PT SET UP WITH SANDWICH TRAY AND DRINK. DENIES NAUSEA. VSS. PT VOIDED APPROX 125 CC OF CLEAR YELLOW URINE WITHOUT DIFFICULTY.
--- NOTE | 2018-11-24 13:30 | NUR ---
LEFT ARM PIV D/C'D WITH CATH TIP INTACT. PT TOLERATED WELL. RIGHT GROIN DRESSING C/D/I. NO S/S OF HEMATOMA NOTED. PT INSTRUCTED TO GET UP AND DRESSED. FAMILY AT BEDSIDE FOR ASSIST. CALL LIGHT WITHIN REACH.
--- NOTE | 2018-11-24 13:38 | NUR ---
DISCUSSED DISCHAGE INSTRUCTIONS WITH PT AND PT'S FAMILY. THEY VOICED UNDERSTANDING.
--- NOTE | 2018-11-24 13:45 | NUR ---
PT TAKEN OUT TO VEHICLE BY WHEELCHAIR. NO S/S OF DISTRESS NOTED. ALL BELONGINGS AND PAPERWORK IN HAND.
== END 2018-11-24 13:45 | disposition home or self-care (01) ==
LOC: D.CATH 06:28
PROVIDERS: ATTEND Internal Medicine Cardiovascular Disease
DX: I25.119 Atherosclerotic heart disease of native coronary artery with unspecified angina pectoris (principal); I51.7 Cardiomegaly; Z01.812 Encounter for preprocedural laboratory examination

== ENCOUNTER → 2019-02-23 13:07 | Outpatient (CLI) | payer MEDICARE, BC ==
[2018-11-24 07:41] VITALS: BMI 23.1
[~2019-02-23 13:07] MED LIST changes: +LOPRESSOR25 MG PO; +OMEPRAZOLE40 MG PO; +PLAVIX75 MG PO; +XANAX0.25 MG PO
== END | disposition home or self-care (01) ==
LOC: D.HCCECHO 13:07 → D.HCCARDIO 14:00
PROVIDERS: ATTEND Internal Medicine Cardiovascular Disease
DX: I25.10 Atherosclerotic heart disease of native coronary artery without angina pectoris (principal)

== ENCOUNTER → 2019-07-17 13:48 | Outpatient (CLI) | payer MEDICARE, BC ==
[2018-11-24 07:41] VITALS: BMI 23.1
== END | disposition home or self-care (01) ==
LOC: D.HCCECHO 13:48
PROVIDERS: ATTEND Internal Medicine Cardiovascular Disease
DX: I25.10 Atherosclerotic heart disease of native coronary artery without angina pectoris (principal)